=== PATIENT | male | born 1965 | race Two or more races ===

== ENCOUNTER 2017-07-20 07:14 | Day surgery (SDC) | payer OTHER ==
[~2017-07-20 07:14] MED LIST: AVAPRO75 MG
== END 2017-07-20 16:45 | disposition home or self-care (01) ==
LOC: CIR.AMB 07:14
DX: G56.01 Carpal tunnel syndrome, right upper limb (principal); M65.341 Trigger finger, right ring finger; M67.441 Ganglion, right hand